=== PATIENT | female | born 1975 | race Caucasian/White ===

== ENCOUNTER 2017-11-24 00:21 | Emergency (ER) | payer OTHER ==
[~2017-11-24] VITALS: Ht 162.6 cm; Wt 77.3 kg
[~2017-11-24 00:21] MED LIST: GABA-532 PO; MULT-38 PO
[2017-11-24] MEDS ORDERED: DOXY100C2 PO (00:45)
[2017-11-24] MEDS ORDERED: HYDR-3973 PO (00:45)
[2017-11-24 01:05] LABS: INR 0.9 INR; PARTIAL THROMBOPLASTIN TIME 24 SECONDS (22-32); PROTHROMBIN TIME 9.8 SECONDS (9.0-12.0)
[2017-11-24 01:06] LABS: ALANINE AMINOTRANSFERASE 27 U/L (12-78); ALBUMIN 3.9 G/DL (3.4-5.0); ALBUMIN/GLOBULIN RATIO 1.1 (1.1-1.5); ALKALINE PHOSPHATASE 75 IU/L (46-116); ANION GAP 14 (8-16); ASPARTATE AMINO TRANSFERASE 13 U/L (10-37); BILIRUBIN,TOTAL 0.2 MG/DL (0.1-1.0); BLOOD UREA NITROGEN 18 MG/DL (7-18); BUN/CREATININE RATIO 17.6 (6.6-38.0); CALCIUM 9.1 MG/DL (8.5-10.1); CHLORIDE 105 MMOL/L (99-107); CREATININE 1.02 MG/DL (0.40-0.90); GLUCOSE 103 MG/DL (70-104); POTASSIUM 3.5 MMOL/L (3.5-5.1); SODIUM 142 MMOL/L (135-145); TOTAL PROTEIN 7.4 G/DL (6.4-8.2); eGFR 59 ML/MIN
[2017-11-24] MEDS ORDERED: famotidine/PF 10 mg/ml inj IV ONE (02:10)
[2017-11-24] MEDS ORDERED: normal saline 1000ML IV soln IVB ONE ×2 (02:10)
[2017-11-24] MEDS ORDERED: ondansetron 4 MG/5 ML oral solution 5ml CUP PO ONE (02:10)
[2017-11-24] MEDS ORDERED: LORazepam 2 mg/ml vial IV ONE (02:10)
[2017-11-24] MEDS ORDERED: ondansetron/PF 4mg/2ml inj IV ONE (02:20)
[2017-11-24 02:23] LABS: BASOPHILS # (AUTO) 0.1 X10'3 (0-0.2); BASOPHILS % (AUTO) 0.7 % (0-1); EOSINOPHILS # (AUTO) 0.1 X10'3 (0-0.9); EOSINOPHILS % (AUTO) 1.4 % (0-6); HEMATOCRIT 41.3 % (35.0-45.0); HEMOGLOBIN 14.2 g/dl (12.0-16.0); LYMPHOCYTES # (AUTO) 3.2 X10'3 (1.1-4.8); LYMPHOCYTES % (AUTO) 31.8 % (21-51); MEAN CORPUSCULAR HEMOGLOBIN 32.5 PG (27.0-31.0); MEAN CORPUSCULAR HGB CONC 34.4 % (33.0-36.5); MEAN CORPUSCULAR VOLUME 94.4 FL (78-98); MEAN PLATELET VOLUME 8.8 FL (7.4-10.4); MONOCYTES # (AUTO) 0.8 X10'3 (0-0.9); MONOCYTES % (AUTO) 7.6 % (2-12); NEUTROPHILS # (AUTO) 5.8 X10'3 (1.8-7.7); NEUTROPHILS % (AUTO) 58.5 % (42-75); PLATELET COUNT 243 X10'3 (140-440); RED BLOOD COUNT 4.38 X10'6 (4.20-5.60); RED CELL DISTRIBUTION WIDTH 13.4 % (11.5-14.5); WHITE BLOOD COUNT 9.9 X10'3 (4.5-11.0)
[2017-11-24] MEDS ORDERED: CYCL-1 PO (03:18)
[2017-11-24] MEDS ORDERED: PANT-47 PO (03:18)
[2017-11-24] MEDS ORDERED: HYDROcodone/acetaminophen 10/325mg tab PO ONE (03:30)
[2017-11-24 03:36] LABS: LIPASE 135 U/L (73-393)
[2017-11-24 03:40] VITALS: BP 161/86
== END 2017-11-24 03:54 | disposition home or self-care (01) ==
LOC: ER 00:21
DX: M79.1 Myalgia (principal); R10.13 Epigastric pain; R07.89 Other chest pain; M54.2 Cervicalgia; R42 Dizziness and giddiness; R51 Headache; Z87.442 Personal history of urinary calculi; Z90.49 Acquired absence of other specified parts of digestive tract; Z88.2 Allergy status to sulfonamides; Z88.1 Allergy status to other antibiotic agents; Z88.5 Allergy status to narcotic agent; Z79.899 Other long term (current) drug therapy
CPT/HCPCS: 36415; 71045; 80053; 83690; 85025; 85379; 85610; 85730; 93005; 96361; 96374; 96375; 99285; J2060; J2405; J3490; J7030; 84484

== ENCOUNTER 2023-07-08 09:44 | Outpatient (CLI) | payer MEDICARE, OTHER ==
[~2023-07-08 09:44] MED LIST changes: +CYCL-1 PO; +DOXY-411 PO; +HYDR-3973 PO; +PANT-47 PO
== END 2023-07-08 23:59 | disposition home or self-care (01) ==
LOC: RAD 09:44
PROVIDERS: ATTEND Nurse Practitioner Family
DX: R94.01 Abnormal electroencephalogram [EEG] (principal); R56.9 Unspecified convulsions
CPT/HCPCS: 95819